=== PATIENT | female | born 1975 | race Caucasian/White ===

== ENCOUNTER 2016-10-12 10:36 | Emergency (ER) | payer MEDICAID ==
[~2016-10-12] VITALS: Wt 84.1 kg
[2016-10-12] MEDS ORDERED: ELIM TOP (12:43)
[2016-10-12] MEDS ORDERED: CETI-240 PO (12:43)
[2016-10-12] MEDS ORDERED: PRED20TA PO (12:44)
--- NOTE | 2016-10-12 12:50 | ERD ---
ER Documentation Chief Complaint Date/Time DATE: 10/12/16 TIME: 12:47 Chief Complaint rash w itchiness HPI This 41-year-old female presents with an itchy rash for the last 6 months. Primarily her lower extremities and less so on her upper extremities. She was treated her house for mite infestation. She has tried [id number] creams. She has not been treated by history for scabies or with prescription medications. She denies shortness of breath, fevers. She denies any known insect bites. ROS All systems reviewed and are negative except as per history of present illness. Medications Home Meds Active Scripts Prednisone* (Prednisone*) 20 Mg Tab, 40 MG PO DAILY for 4 Days, TAB Prov:NALLELY PALENCIA MD 10/12/16 Cetirizine Hcl* (Cetirizine Hcl*) 10 Mg Tablet, 10 MG PO DAILY, #15 TAB Prov:NALLELY PALENCIA MD 10/12/16 Permethrin* (Elimite*) 5% Cr, 1 APPLIC TOP ONCE for 1 Day, TUB Prov:NALLELY PALENCIA MD 10/12/16 Allergies Allergies: Coded Allergies: Penicillins (Verified Allergy, Unknown, 03/28/14) PMhx/Soc History of Surgery: No Anesthesia Reaction: No Hx Neurological Disorder: No Hx Respiratory Disorders: No Hx Cardiac Disorders: No Hx Psychiatric Problems: No Hx Miscellaneous Medical Probl: No Hx Alcohol Use: No Hx Substance Use: No Hx Tobacco Use: No Smoking Status: Never smoker Physical Exam Vitals Vital Signs Date Time Temp Pulse Resp B/P Pulse Ox O2 Delivery O2 Flow Rate FiO2 10/12/16 10:41 98.0 72 20 114/69 97 Physical Exam Const: []Alert, [id number] per Head: Atraumatic Eyes: Normal Conjunctiva ENT: Normal External Ears, Nose and Mouth. Neck: Full range of motion..~ No meningismus. Resp: Clear to auscultation bilaterally Cardio: Regular rate and rhythm, no murmurs Abd: Soft, non tender, non distended. Normal bowel sounds Skin: No petechiae or rashes. Scattered excoriated papules on primarily the lower extremities. There is a few lesions on the feet. Patient has onychomycosis. Back: No midline or flank tenderness Ext: No cyanosis, or edema Neur: Awake and alert Psych: Normal Mood and Affect Procedures/MDM Patient presents with dermatitis for last 6 months erythematous excoriated macular papular rash,. Given the duration and location she will treated for scabies with permethrin and symptomatically with triamcinolone, prednisone and Zyrtec. The patient was stable with no new complaints during the ER course. Clinically, there is no current evidence to suggest meningitis, sepsis, acute abdomen, pneumonia, acute coronary syndrome, pulmonary embolism, or any other emergent condition appearing to require further evaluation or hospitalization. The patient should certainly return for any new or worsening symptoms per the aftercare instructions. They should otherwise follow-up with her primary care doctor for reevaluation this week. Departure Diagnosis: Primary Impression: Dermatitis Additional Impression: Itching Condition: Stable Patient Instructions: Scabies, Dermatitis, Non-Specific Additional Instructions: VAMOS A TRATAR PARA SCABIES. Examines normal hoy. Cheque otro vez con cedillo doctor primario en el proximo ceja or regresa para mas o nueva simptomas. NALLELY PALENCIA MD Oct 12, 2016 12:50
== END 2016-10-12 13:09 | disposition home or self-care (01) ==
LOC: FTE 10:36
DX: L30.9 Dermatitis, unspecified (principal); L29.9 Pruritus, unspecified
CPT/HCPCS: 99283

== ENCOUNTER 2017-09-10 18:22 | Emergency (ER) | END 2017-09-10 20:32 | disposition home or self-care (01) ==